=== PATIENT | male | born 2005 | race Caucasian/White ===

== ENCOUNTER 2025-05-24 03:45 | Emergency (ER) | payer OTHER ==
[~2025-05-24] VITALS: Ht 172.7 cm; Wt 97.6 kg
[2025-05-24 03:50] VITALS: O2SAT 98
[2025-05-24] MEDS: BACITRACIN 14GM TUBE TOP ONE (05:08)
[2025-05-24] MEDS: IBUPROFEN 600MG TABLET PO ONE (05:08)
[2025-05-24] MEDS: TETANUS, DIPHTHERIA, PERTUSSIS VAC/PF 0.5ML (>10YR OLD) IM ONE (05:08)
[2025-05-24] MEDS ORDERED: MUPI1OIN4 TP (05:53)
[2025-05-24] MEDS ORDERED: CEPH500C2 MT (05:53)
[2025-05-24] MEDS ORDERED: IBUP-1455 MT (05:53)
[2025-05-24] MEDS: LIDOCAINE HCL 1% 20ML VIAL INFIL ONE (05:54)
[2025-05-24 06:09] VITALS: BP 152/94; PULSE 79; RESP 14; TEMP 37.2; O2SAT 99
== END 2025-05-24 06:10 | disposition home or self-care (01) ==
LOC: ER 03:45
DX: S61.411A Laceration without foreign body of right hand, initial encounter (principal); S80.01XA Contusion of right knee, initial encounter; V00.141A Fall from scooter (nonmotorized), initial encounter; Y93.89 Activity, other specified; Y92.89 Other specified places as the place of occurrence of the external cause; Y99.8 Other external cause status
CPT/HCPCS: 12001; 73130; 73562; 90471; 90715; 99284